=== PATIENT | male | born 1995 | race Caucasian/White ===

== ENCOUNTER 2020-08-06 07:33 | Emergency (ER) | payer OTHER ==
[2020-08-06 07:41] VITALS: BP 135/90; PULSE 74; RESP 18; TEMP 98.1
[2020-08-06] MEDS ORDERED: KETOROLAC 15 MG/ML 1 ML VIAL IM STA (07:50)
[2020-08-06] MEDS ORDERED: ORPHENADRINE 30 MG/ML 2 ML VIAL IM STA (07:50)
[2020-08-06] MEDS ORDERED: ACET/COD 300 MG/30 MG STARTER PACK 6 TAB BTL PO STA (07:51)
--- NOTE | 2020-08-06 07:51 | ED ---
Back Pain HPI - General Chief Complaint: Back Pain/Injury Stated Complaint: Work Injury Time Seen by Provider: 08/06/20 07:43 Source: patient, RN notes reviewed Limitations: no limitations - History of Present Illness Initial Comments: 24-year-old male presents emergency Department chief complaint of back discomfort. Patient states she was lifting a palate and felt a pop and twinge in his back. He's had this happen the past. The first time just happened. He states last time he was out of work for several weeks. He has no shortness breath no anterior chest pain. She states she has pain with range of motion of his left shoulder and movement of his back. Patient denies any low back pain no red flag symptoms. - Related Data Previous Rx's Medication Instructions Recorded Cyclobenzaprine [Flexeril] 10 mg PO TID PRN #15 tab 08/06/20 Ibuprofen [Motrin] 600 mg PO Q8HR PRN #20 tab 08/06/20 predniSONE 50 mg PO DAILY #5 tab 08/06/20 Allergies Allergy/AdvReac Type Severity Reaction Status Date / Time No Known Allergies Allergy Verified 08/06/20 07:42 Review of Systems ROS Statement: Those systems with pertinent positive or pertinent negative responses have been documented in the HPI. ROS Other: All systems not noted in ROS Statement are negative. Past Medical History Past Medical History: Hypertension History of Any Multi-Drug Resistant Organisms: None Reported Additional Past Surgical History / Comment(s): L craniotomy Past Psychological History: No Psychological Hx Reported Smoking Status: Former smoker Past Alcohol Use History: Occasional Past Drug Use History: None Reported General Exam Limitations: no limitations General appearance: alert, in no apparent distress Head exam: Present: atraumatic, normocephalic, normal inspection Neck exam: Present: normal inspection. Absent: tenderness, meningismus, lymphadenopathy Respiratory exam: Present: normal lung sounds bilaterally. Absent: respiratory distress, wheezes, rales, rhonchi, stridor, chest wall tenderness Cardiovascular Exam: Present: regular rate, normal rhythm, normal heart sounds. Absent: systolic murmur, diastolic murmur, rubs, gallop, clicks GI/Abdominal exam: Present: soft, normal bowel sounds. Absent: distended, tenderness, guarding, rebound, rigid Extremities exam: Present: normal inspection, full ROM, normal capillary refill. Absent: tenderness Back exam: Present: full ROM, tenderness (Left thoracic inferior to the scapula no particular tenderness), muscle spasm, paraspinal tenderness. Absent: vertebral tenderness Neurological exam: Present: alert, oriented X3, CN II-XII intact, reflexes normal. Absent: motor sensory deficit Skin exam: Present: warm, dry, intact, normal color. Absent: rash Course Vital Signs 08/06/20 07:36 Temperature 98.1 F Pulse Rate 74 Respiratory 18 Rate Blood Pressure 135/90 O2 Sat by Pulse 100 Oximetry Medical Decision Making - Medical Decision Making 24-year-old presented for upper back pain at work injury. Patient is alert like symptoms. This is happened in the past is not new type of injury for patient. Patient will be given Toradol, Norflex. Patient will follow up with [facility] for return to work return parameters were discussed. Disposition Clinical Impression: Strain of thoracic back region Disposition: HOME SELF-CARE Condition: Stable Instructions (If sedation given, give patient instructions): Thoracic Back Strain (ED) Additional Instructions: Please return to the Emergency Department if symptoms worsen or any other co ncerns. Prescriptions: Cyclobenzaprine [Flexeril] 10 mg PO TID PRN #15 tab PRN Reason: Muscle Spasm Ibuprofen [Motrin] 600 mg PO Q8HR PRN #20 tab PRN Reason: Pain predniSONE 50 mg PO DAILY #5 tab Is patient prescribed a controlled substance at d/c from ED?: No Referrals: Niranjan Loomis MD [Primary Care Provider] - 1-2 days Time of Disposition: 07:51
== END 2020-08-06 08:57 | disposition home or self-care (01) ==
LOC: EC 07:33
DX: S29.012A Strain of muscle and tendon of back wall of thorax, initial encounter (principal); Z87.891 Personal history of nicotine dependence; X50.9XXA Other and unspecified overexertion or strenuous movements or postures, initial encounter; Y92.69 Other specified industrial and construction area as the place of occurrence of the external cause; Y99.0 Civilian activity done for income or pay
CPT/HCPCS: 99283; 96372 ×2; J2360; J1885

== ENCOUNTER → 2020-08-06 | Outpatient (CLI) | payer OTHER ==
--- NOTE | 2020-08-06 17:42 | XR ---
EXAMINATION: XR chest 2V DATE AND TIME: 08/06/2020 5:19 PM CLINICAL INDICATION: PHH; PAIN MID T SPINE WITH DEEP BREATHING TECHNIQUE: Departmental protocol COMPARISON: None FINDINGS: The lungs are clear. The pleural spaces are negative. The cardiac silhouette is not enlarged. The remainder of the mediastinal silhouette is unremarkable. The skeletal structures and soft tissues are negative for acute findings. IMPRESSION: NO ACUTE PROCESS.
--- NOTE | 2020-08-06 17:43 | XR ---
PROCEDURE: XR thoracic spine complete - 3V DATE AND TIME: 08/06/2020 5:19 PM CLINICAL INDICATION: PHH; PAIN MID T SPINE WITH DEEP BREATHING TECHNIQUE: Department protocol COMPARISON: None FINDINGS: There is no fracture or malalignment. The soft tissues are unremarkable. IMPRESSION: NO ACUTE PROCESS.
== END | disposition home or self-care (01) ==
LOC: RAD 17:00
PROVIDERS: ATTEND Emergency Medicine
DX: M54.6 Pain in thoracic spine (principal); R07.1 Chest pain on breathing
CPT/HCPCS: 71046; 72072

== ENCOUNTER → 2020-08-13 | Outpatient (CLI) | payer OTHER ==
--- NOTE | 2020-08-13 18:13 | XR ---
Result: History: Left lower rib pain. Comparison: None available. Technique: Four views of the left ribs. Findings: There is no definite displaced rib fracture. The visualized osseous structures are in anatomic align ment. The visualized lungs and cardiomediastinal silhouette are unremarkable. Impression: No definite displaced rib fracture is seen.
== END | disposition home or self-care (01) ==
LOC: RADXRMAIN 17:16
PROVIDERS: ATTEND Emergency Medicine
DX: S29.012D Strain of muscle and tendon of back wall of thorax, subsequent encounter (principal)